=== PATIENT | male | born 1990 | race Caucasian/White ===

== ENCOUNTER 2019-03-11 13:12 | Emergency (ER) | payer OTHER, BC ==
[2019-03-11] MEDS ORDERED: Ketorolac 60 MG/2 ML SDV IM ONE (13:38)
--- NOTE | 2019-03-11 13:44 | EDM.PDOC ---
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 He has not been doing excessive work like swinging a hammer, denies any trauma or fevers. Patient's followed by Dr. Marti in [place] and called him and made an appointment for this week. Patient states he cannot stand the pain. Patient has no chest pain or respiratory complaints. Review of systems: As per history of present illness and below otherwise all systems reviewed and negative. Past medical history: As per history of present illness and as reviewed below otherwise noncontributory. Surgical history: As per history of present illness and as reviewed below otherwise noncontributory. Social history: No reported history of drug or alcohol abuse. Family history: As per history of present illness and as reviewed below otherwise noncontributory. Physical exam: General: Well developed, well nourished in NAD HEENT: Atraumatic, normocephalic, pupils reactive, negative for conjunctival pallor or scleral icterus, mucous membranes moist, throat clear, neck supple, nontender, trachea midline. Lungs: Clear to auscultation, breath sounds equal bilaterally, chest nontender. Heart: S1S2, regular, negative for clicks, rubs, or JVD. Abdomen: NABS, Soft, nondistended, nontender. Negative for masses or hepatosplenomegaly. Negative for costovertebral tenderness. Pelvis: Stable nontender. Genitourinary: Deferred. Rectal: Deferred. Extremities: Left thumb stump without signs of infection, there is no edema or erythema or swelling of the hand or forearm, negative for cords or calf pain. Neurovascular unremarkable. Neuro: Awake, alert, oriented. Cranial nerves II through XII unremarkable. Cerebellum unremarkable. Motor and sensory unremarkable throughout. Exam nonfocal. Skin:warm and dry Diagnostics: None Therapeutics: Toradol ED Course: Stable Impression: Pain left upper extremity status post amputation of thumb Prescriptions: tramadol Plan: Keep appointment with Dr. Figueroa and or follow-up with primary care as needed Definitive disposition and diagnosis as appropriate pending reevaluation and review of above. Left Thumn Pain Score (Numeric/FACES): 9 - Related Data Allergies Allergy/AdvReac Type Severity Reaction Status Date / Time Penicillins Allergy Other Verified 03/11/19 13:27 Home Meds: Home Meds traMADol HCl [Tramadol HCl] 50 mg PO Q6H PRN #16 tablet 03/11/19 [Rx] Past Medical History - Past Health History Medical/Surgical History: Denies Medical/Surgical History - Infectious Disease History Infectious Disease History: Reports: None - Past Surgical History Musculoskeletal Surgical History: Reports: Other (See Below) Other Musculoskeletal Surgeries/Procedures:: Left thumb partial amputation in 2018. Social & Family History - Family History Family Medical History: Noncontributory - Tobacco Use Smoking Status *Q: Current Every Day Smoker Years of Tobacco use: 10 Packs/Tins Daily: 0.5 - Caffeine Use Caffeine Use: Reports: Energy Drinks - Recreational Drug Use Recreational Drug Use: No Review of Systems - Review of Systems Review Of Systems: ROS reveals no pertinent complaints other than HPI. ED EXAM, GENERAL - Physical Exam Exam: See Below (See history of present illness) Course - Vital Signs Last Recorded V/S: Last Vital Signs Temp 97.2 F 03/11/19 13:27 Pulse 68 03/11/19 13:27 Resp 17 03/11/19 13:27 BP 111/64 03/11/19 13:27 Pulse Ox 98 03/11/19 13:27 - Orders/Labs/Meds Orders: Active Orders 24 hr Category Date Time Status Ketorolac [Toradol] Med 03/11/19 13:38 Once 60 mg IM ONETIME ONE Departure - Departure Time of Disposition: 13:47 Disposition: Home, Self-Care 01 Condition: Good Clinical Impression: Upper extremity pain Qualifiers: Laterality: left Qualified Code(s): M79.602 - Pain in left arm - Discharge Information *PRESCRIPTION DRUG MONITORING PROGRAM REVIEWED*: No *COPY OF PRESCRIPTION DRUG MONITORING REPORT IN PATIENT ONESIMO: No Referrals: PCP,Unknown [Primary Care Provider] - Additional Instructions: The following information is given to patients seen in the emergency department who are being discharged to home. This information is to outline your options for follow-up care. We provide all patients seen in our emergency department with a follow-up referral. The need for follow-up, as well as the timing and circumstances, are variable depending upon the specifics of your emergency department visit. If you don't have a primary care physician on staff, we will provide you with a referral. We always advise you to contact your personal physician following an emergency department visit to inform them of the circumstance of the visit and for follow-up with them and/or the need for any referrals to a consulting specialist. The emergency department will also refer you to a specialist when appropriate. This referral assures that you have the opportunity for follow-up care with a specialist. All of these measure are taken in an effort to provide you with optimal care, which includes your follow-up. Under all circumstances we always encourage you to contact your private physician who remains a resource for coordinating your care. When calling for follow-up care, please make the office aware that this follow-up is from your recent emergency room visit. If for any reason you are refused follow-up, please contact the [facility] Emergency Department at and asked to speak to the emergency department charge nurse. Follow-up with Dr. Marti in [place] as scheduled, take meds as directed return if any symptoms worsen or change. Follow-up with your primary care locally. [facility] [address] [place] [id number] - My Orders Last 24 Hours: My Active Orders 03/11/19 13:38 Ketorolac [Toradol] 60 mg IM ONETIME ONE - Assessment/Plan Last 24 Hours: My Active Orders 03/11/19 13:38 Ketorolac [Toradol] 60 mg IM ONETIME ONE
== END 2019-03-11 14:03 | disposition home or self-care (01) ==
LOC: MW.ED 13:12
DX: M79.602 Pain in left arm (principal); Z89.012 Acquired absence of left thumb; F17.210 Nicotine dependence, cigarettes, uncomplicated; Z88.0 Allergy status to penicillin
CPT/HCPCS: 96372; 99283; J1885; 99282

== ENCOUNTER 2021-03-12 18:42 | Emergency (ER) | payer OTHER ==
[2021-03-12] MEDS ORDERED: Proparacaine 0.5% Ophth Soln 15 ML Bottle EYEBOTH STA (18:59)
[2021-03-12] MEDS ORDERED: Tetracaine HCl/PF 0.5% 4 ML Bottle ONE (19:03)
[2021-03-12] MEDS ORDERED: Tetracaine HCl/PF 0.5% 4 ML Bottle EYEBOTH ONE (19:07)
--- NOTE | 2021-03-12 19:11 | EDM.PDOC ---
ED HPI GENERAL MEDICAL PROBLEM - General Chief Complaint: ENT Problem Stated Complaint: PIECE OF METAL IN LEFT EYE Time Seen by Provider: 03/12/21 18:59 - History of Present Illness INITIAL COMMENTS - FREE TEXT/NARRATIVE: History of present illness: [] Patient got metal in his eye at work yesterday. It hurts more now. Light bothers it to. He has no systemic signs of illness. He is in good health. He had a tetanus shot less than 5 years when he injured his left thumb. He does not wear contacts. The patient was seen in the clinic earlier today and they tried to remove the foreign body with a fiber tip applicator stick and were unable to do so. Review of systems: As per history of present illness and below otherwise all systems reviewed and negative. Past medical history: As per history of present illness and as reviewed below otherwise noncontributory. Surgical history: As per history of present illness and as reviewed below otherwise noncontributory. Social history: No reported history of drug or alcohol abuse. Family history: As per history of present illness and as reviewed below otherwise noncontributory. Physical exam: Constitutional - well developed, well-nourished and in no acute distress HEENT - normocephalic, no evidence of trauma - external nose and mouth normal - no mass in neck and no JVD - mucosae moist EYES -left eye-tiny metallic-looking foreign body at 10:00 in the cornea. Full EOM, PERRL, no icterus - no evidence of inflammation, injection, or drainage Respiratory - no respiratory distress, equal bilateral expansion Musculoskeletal no gross deformity of long bones or joints - no tenderness, swelling or edema Neurologic - Alert and oriented times four - CN II-XII grossly intact - motor sensory and coordination symmetrically normal Psychiatric - appropriate mood and affect with normal thought content Hematologic - No petechiae or purpura - mucosa appropriate color and sclera not pale - normal nail bed color Integument - no rash or evidence of trauma - normal turgor Diagnostics: [] Therapeutics: [] Impression: [] Plan: [] Definitive disposition and diagnosis as appropriate pending reevaluation and review of above. Left Eye Pain Score (Numeric/FACES): 5 - Related Data Allergies Allergy/AdvReac Type Severity Reaction Status Date / Time Penicillins Allergy Other Verified 03/12/21 18:55 Home Meds: Home Meds . [No Known Home Meds] 03/12/21 [History] Past Medical History - Past Health History Medical/Surgical History: Denies Medical/Surgical History - Infectious Disease History Infectious Disease History: Reports: None - Past Surgical History Musculoskeletal Surgical History: Reports: Other (See Below) Other Musculoskeletal Surgeries/Procedures:: Left thumb partial amputation in 2018. Social & Family History - Family History Family Medical History: No Pertinent Family History - Tobacco Use Tobacco Use Status *Q: Current Every Day Tobacco User Years of Tobacco use: 10 Packs/Tins Daily: 1 - Caffeine Use Caffeine Use: Reports: Coffee, Energy Drinks, Soda, Tea - Recreational Drug Use Recreational Drug Use: No ED ROS GENERAL - Review of Systems Review Of Systems: Comprehensive ROS is negative, except as noted in HPI. ED EXAM, GENERAL - Physical Exam Exam: See Below ED GENERAL MEDICAL PROCEDURES - Additional/Other Procedure(s) Other (Free Text) Procedure(s): FB removal eye FB removed left eye after anesthesia topically with tetracaine. rust ring persists - touched with tahmina and removed. Tolerated well. Course - Vital Signs Last Recorded V/S: Last Vital Signs Temp 36.1 C 03/12/21 18:56 Pulse 60 03/12/21 18:56 Resp 16 03/12/21 18:56 BP 125/74 03/12/21 18:56 Pulse Ox 98 03/12/21 18:56 - Orders/Labs/Meds Meds: Medications Discontinued Medications Generic Name Dose Route Start Last Admin Trade Name Aung PRN Reason Stop Dose Admin Gentamicin Sulfate 0.3 gm 03/12/21 22:00 Gentamicin 0.3% Ophth Oint 3.5 Gm Tube EYELF TID KERA Gentamicin Sulfate 1 ml 03/12/21 19:24 Gentamicin 0.3% Ophth Soln 5 Ml Bottle EYELF 03/12/21 19:25 STAT STA Proparacaine HCl 1 ml 03/12/21 18:59 Proparacaine 0.5% Ophth Soln 15 Ml Bottle EYEBOTH 03/12/21 19:00 STAT STA Tetracaine HCl Confirm 03/12/21 19:03 Tetracaine Hcl/Pf 0.5% 4 Ml Bottle Administered 03/12/21 19:04 Dose 4 ml .ROUTE .STK-MED ONE Tetracaine HCl 1 ml 03/12/21 19:07 03/12/21 19:08 Tetracaine Hcl/Pf 0.5% 4 Ml Bottle EYEBOTH 03/12/21 19:08 1 ml ASDIRECTED ONE Administration Tropicamide 0.5 ml 03/12/21 19:17 Tropicamide 1% Ophth Soln 15 Ml Bottle EYELF 03/12/21 19:18 ONETIME ONE Departure - Departure Time of Disposition: 20:09 Disposition: Home, Self-Care 01 Condition: Good Clinical Impression: Foreign body in cornea, left eye, initial encounter, Corneal rust ring of left eye - Discharge Information Instructions: Eye Foreign Body, [id number] Referrals: PCP,None [Primary Care Provider] - Harsha Madrigal MD [Ordering Only Provider] - Forms: ED Department Discharge Additional Instructions: You were dilated with a local atropine drop. You had local anesthetics as well. Arrest ring was taken out with an optic bur. 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 Use the drops it 3 times a day for 2 or 3 days. In 2 days have somebody verify that the area has healed properly. This can be done by primary care or ophthalmology. [facility] [address] [place] [address] [place] [phone] The following information is given to patients seen in the emergency department who are being discharged to home. This information is to outline your options for follow-up care. We provide all patients seen in our emergency department with a follow-up referral. The need for follow-up, as well as the timing and circumstances, are variable depending upon the specifics of your emergency department visit. If you don't have a primary care physician on staff, we will provide you with a referral. We always advise you to contact your personal physician following an emergency department visit to inform them of the circumstance of the visit and for follow-up with them and/or the need for any referrals to a consulting specialist. The emergency department will also refer you to a specialist when appropriate. This referral assures that you have the opportunity for follow-up care with a specialist. All of these measure are taken in an effort to provide you with optimal care, which includes your follow-up. Under all circumstances we always encourage you to contact your private physician who remains a resource for coordinating your care. When calling for follow-up care, please make the office aware that this follow-up is from your recent emergency room visit. If for any reason you are refused follow-up, please contact the [facility] Emergency Department at and asked to speak to the emergency department charge nurse. Sepsis Event Note (ED) - Evaluation Sepsis Screening Result: No Definite Risk - Focused Exam Vital Signs: Vital Signs Temp Pulse Resp BP Pulse Ox 03/12/21 18:56 36.1 C 60 16 125/74 98
[2021-03-12] MEDS ORDERED: Tropicamide 1% Ophth Soln 15 ML Bottle EYELF ONE (19:17)
[2021-03-12] MEDS ORDERED: Gentamicin 0.3% Ophth Soln 5 ML Bottle EYELF STA (19:24)
[2021-03-12] MEDS ORDERED: Atropine 1% Ophth Soln 15 ML Bottle EYEBOTH STA (20:22)
== END 2021-03-12 20:28 | disposition home or self-care (01) ==
LOC: MW.ED 18:42
DX: T15.02XA Foreign body in cornea, left eye, initial encounter (principal); Z72.0 Tobacco use; Z88.0 Allergy status to penicillin; Y99.0 Civilian activity done for income or pay
CPT/HCPCS: 65220; 99283; A9270